=== PATIENT | female | born 1995 | race Hispanic/Latino ===

== ENCOUNTER 2017-12-09 21:01 | Inpatient (IN) | payer MEDICAID ==
[~2017-12-09] VITALS: Ht 167.6 cm; Wt 100.7 kg
[2017-12-09] MEDS ORDERED: PREN-196 PO (21:19)
[2017-12-09] MEDS: LACTATED RINGERS 1000ML 1,000 ML IV SCH ×2 (22:09→23:06)
[2017-12-09 22:14] LABS: BILIRUBIN,URINE Negative (NEGATIVE); COLOR,URINE Yellow (YELLOW); GLUCOSE, URINE (UA) Negative (NEGATIVE); KETONES,URINE Negative (NEGATIVE); LEUKOCYTE ESTERASE ,URINE Small (NEGATIVE); NITRATE,URINE Negative (NEGATIVE); OCCULT BLOOD,URINE Negative (NEGATIVE); PROTEIN,URINE Trace (NEGATIVE)
[2017-12-09 22:21] LABS: AMPHET/METH SCREEN,URINE NEGATIVE (NEGATIVE); BARBITURATE SCREEN, URINE NEGATIVE (NEGATIVE); BENZODIAZEPINES SCREEN,URINE NEGATIVE (NEGATIVE); CANNABINOID SCREEN,URINE NEGATIVE (NEGATIVE); COCAINE SCREEN,URINE NEGATIVE (NEGATIVE); OPIATE SCREEN,URINE NEGATIVE (NEGATIVE); PHENCYCLIDINE SCREEN,URINE NEGATIVE (NEGATIVE)
[2017-12-09 22:26] LABS: APPEARANCE,URINE SLIGHTLY CLOUDY (CLEAR)
[2017-12-09 22:31] LABS: BACTERIA,URINE Few /HPF (None Seen); RBC,URINE 0-1 /HPF (0-1)
[2017-12-09 22:32] LABS: CALCIUM OXALATE CRYSTALS,UR Few /LPF (None Seen); SQUAMOUS EPITHELIAL CELL,UR Many /LPF (0-2)
[2017-12-10 00:20] LABS: HEMATOCRIT 31.5 % (36-48); MEAN CORPUSCULAR HEMOGLOBIN 24.1 pg (27.0-33.0); MEAN CORPUSCULAR HGB CONC 32.4 g/dL (32.0-36.0); MEAN CORPUSCULAR VOLUME 74.4 fL (79-99); PLATELET COUNT (AUTO) 382 K/uL (130-400); RED BLOOD CELL COUNT(AUTO) 4.23 MIL/uL (4.00-5.50); WHITE BLOOD COUNT (AUTO) 11.2 K/uL (4.8-10.8)
[2017-12-10] MEDS: TERBUTALINE SULFATE VIAL 1MG/ML SQ SCH (00:34)
[2017-12-10] MEDS: PROMETHAZINE HCL 25 MG/ML 1ML AMPULE IM PRN ×3 (01:12→20:11)
[2017-12-10] MEDS: MEPERIDINE-PF 50 MG/ML SYG IVP PRN ×2 (01:13→05:20)
[2017-12-10] MEDS ORDERED: MAGNESIUM 4GM PREMIX 100ML 100 ML IV SCH (02:00)
[2017-12-10] MEDS ORDERED: CALCIUM GLUCONATE 1 GM/10 ML VIAL IV PRN (02:00)
[2017-12-10] MEDS ORDERED: MAGNESIUM SULFATE 1,000 ML IV PRN (02:15)
[2017-12-10] MEDS ORDERED: AMPICILLIN 2GM+NS 100ML 100 ML IV ONE (03:21)
[2017-12-10 07:02] LABS: RAPID PLASMA REAGIN NONREACTIVE (NONREACTIVE)
[2017-12-10] MEDS: AMPICILLIN 2GM+NS 100ML 100 ML IV SCH ×4 (09:30→21:30)
[2017-12-10] MEDS: LACTATED RINGERS 1000ML 1,000 ML IV SCH (09:41)
[2017-12-10] MEDS ORDERED: CEFAZOLIN SODIUM 1 GM VIAL IVP PRN (10:45)
[2017-12-10] MEDS ORDERED: CALDOLOR 800MG+NS 250ML 250 ML IV PRN (10:45)
[2017-12-10] MEDS ORDERED: LACTATED RINGERS 1000ML 1,000 ML IV SCH (10:45)
[2017-12-10] MEDS ORDERED: LANOLIN 30GM OINTMENT TP PRN (13:45)
[2017-12-10] MEDS ORDERED: DIPHENHYDRAMINE HCL 25 MG CAPSULE PO PRN (13:45)
[2017-12-10] MEDS ORDERED: PROMETHAZINE HCL 25 MG/ML 1ML AMPULE IM PRN (13:45)
[2017-12-10] MEDS ORDERED: ACETAMINOPHEN EXTRA STRENGTH 500 MG TABLET PO PRN (13:45)
[2017-12-10] MEDS ORDERED: SODIUM CHLORIDE 0.9% 10 ML VIAL IVP PRN ×2 (13:45)
[2017-12-10] MEDS ORDERED: IBUPROFEN 600 MG TABLET PO PRN (13:45)
[2017-12-10] MEDS: IBUPROFEN 800 MG TAB PO SCH ×2 (13:45→21:45)
[2017-12-10] MEDS ORDERED: DEXTROSE 5 %-0.45 % NACL 1,000 ML IV PRN (13:45)
[2017-12-10] MEDS: MEASLES/MUMPS/RUBELLA VACCINE, LIVE 0.5 ML/VIAL SQ SCH (13:45)
[2017-12-10] MEDS ORDERED: BISACODYL 10 MG SUPP.RECT RC PRN (13:45)
[2017-12-10] MEDS: DIPH,PERTUSS(ACELL),TET VAC/PF 0.5 ML VIAL IM SCH (13:45)
[2017-12-10] MEDS ORDERED: CEFAZOLIN SODIUM 1 GM VIAL IVP ONE (14:00)
[2017-12-10] MEDS ORDERED: ONDANSETRON HCL 4 MG/2 ML VIAL ONE (14:06)
[2017-12-10] MEDS ORDERED: DEXAMETHASONE SOD PHOSPHATE 10MG/ML 1ML VIAL ONE (14:06)
[2017-12-10] MEDS ORDERED: OXYTOCIN 10 USP UNITS/ML ONE ×3 (14:06→21:54)
[2017-12-10] MEDS ORDERED: LACTATED RINGERS 1000ML 1,000 ML IV ONE ×2 (15:16→21:54)
[2017-12-10] MEDS: OXYTOCIN-LR 20 UNITS/1000 ML 1,000 ML IV PRN ×2 (15:19→21:57)
[2017-12-10] MEDS ORDERED: EPHEDRINE-NS PF 50MG/5ML SYRINGE IV PRN (15:27)
[2017-12-10] MEDS ORDERED: EPHEDRINE-NS PF 50MG/5ML SYRINGE IV ONE (15:30)
[2017-12-10] MEDS: MEPERIDINE-PF 75 MG/ML SYG IM PRN ×2 (15:58→20:12)
[2017-12-10 20:30] VITALS: BP 122/59
[2017-12-10] MEDS: DOCUSATE SODIUM 100 MG CAP PO SCH (21:14)
[2017-12-10] MEDS: SIMETHICONE 80 MG TAB.CHEW PO PRN (21:14)
[2017-12-10] MEDS ORDERED: CALDOLOR 800MG+NS 250ML 250 ML IV SCH (21:45)
[2017-12-11] VITALS: BP 118/60
[2017-12-11] MEDS: TERBUTALINE SULFATE VIAL 1MG/ML SQ SCH (00:15)
[2017-12-11] MEDS: ACETAMINOPHEN-CODEINE 300/30MG TAB PO PRN ×5 (00:35→20:13)
[2017-12-11] MEDS: SIMETHICONE 80 MG TAB.CHEW PO PRN ×4 (01:03→21:55)
[2017-12-11 03:23] VITALS: BP 108/55
[2017-12-11] MEDS: IBUPROFEN 800 MG TAB PO SCH ×2 (05:45→17:25)
[2017-12-11 07:35] LABS: HEMATOCRIT 27.8 % (36-48); MEAN CORPUSCULAR HEMOGLOBIN 24.2 pg (27.0-33.0); MEAN CORPUSCULAR HGB CONC 32.4 g/dL (32.0-36.0); MEAN CORPUSCULAR VOLUME 74.7 fL (79-99); PLATELET COUNT (AUTO) 311 K/uL (130-400); RED BLOOD CELL COUNT(AUTO) 3.72 MIL/uL (4.00-5.50); RED CELL DISTRIBUTION WIDTH 16.1 % (11.0-15.5); WHITE BLOOD COUNT (AUTO) 14.3 K/uL (4.8-10.8)
[2017-12-11] MEDS: LIDOCAINE 5% TOPICAL PATCH TP SCH (10:01)
[2017-12-11] MEDS: DOCUSATE SODIUM 100 MG CAP PO SCH ×2 (10:02→21:55)
[2017-12-11 11:44] VITALS: BP 129/78
[2017-12-11] MEDS ORDERED: IBUPROFEN 800 MG TAB PO SCH (13:45)
[2017-12-11 15:18] VITALS: BP 125/69
[2017-12-11 19:24] VITALS: BP 118/72
[2017-12-11 23:51] VITALS: BP 119/84
[2017-12-12] MEDS: TERBUTALINE SULFATE VIAL 1MG/ML SQ SCH (00:15)
[2017-12-12] MEDS: IBUPROFEN 800 MG TAB PO SCH ×4 (00:42→22:49)
[2017-12-12] MEDS: ACETAMINOPHEN-CODEINE 300/30MG TAB PO PRN ×3 (02:43→21:44)
[2017-12-12 03:03] VITALS: BP 123/69
[2017-12-12 06:22] LABS: HEPATITIS Bs ANTIGEN SCREEN P Negative (Negative)
[2017-12-12 07:40] VITALS: BP 125/73
[2017-12-12] MEDS: DOCUSATE SODIUM 100 MG CAP PO SCH ×2 (09:35→21:44)
[2017-12-12] MEDS: SIMETHICONE 80 MG TAB.CHEW PO PRN ×4 (09:35→21:44)
[2017-12-12] MEDS: LIDOCAINE 5% TOPICAL PATCH TP SCH (09:35)
[2017-12-12 11:40] VITALS: BP 127/87
[2017-12-12 16:45] VITALS: BP 125/80
[2017-12-12 19:30] VITALS: BP 141/64
[2017-12-12 23:33] VITALS: BP 123/74
[2017-12-13] MEDS: TERBUTALINE SULFATE VIAL 1MG/ML SQ SCH (00:15)
[2017-12-13 03:07] VITALS: BP 121/71
[2017-12-13] MEDS: IBUPROFEN 800 MG TAB PO SCH ×2 (06:20→14:05)
[2017-12-13 07:57] VITALS: BP 133/79
[2017-12-13] MEDS: DOCUSATE SODIUM 100 MG CAP PO SCH (09:16)
[2017-12-13] MEDS: LIDOCAINE 5% TOPICAL PATCH TP SCH (09:17)
[2017-12-13] MEDS: MEASLES/MUMPS/RUBELLA VACCINE, LIVE 0.5 ML/VIAL SQ SCH (13:45)
[2017-12-13] MEDS: DIPH,PERTUSS(ACELL),TET VAC/PF 0.5 ML VIAL IM SCH (13:45)
[2017-12-13 16:34] VITALS: BP 134/71
== END 2017-12-13 18:00 | disposition home or self-care (01) | DRG 540 ==
LOC: EDH 21:01 → OBSVTOIN 21:02 → LDH 21:02 → WSH 12-11 11:10
PROVIDERS: ADMIT Obstetrics & Gynecology; ATTEND Obstetrics & Gynecology
PROC: 10D00Z0 Extraction of Products of Conception, High, Open Approach (ICD-10-PCS; principal; 2017-12-10 14:00)
DX: O32.8XX0 Maternal care for other malpresentation of fetus, not applicable or unspecified (principal); O60.14X0 Preterm labor third trimester with preterm delivery third trimester, not applicable or unspecified; O99.02 Anemia complicating childbirth; O34.211 Maternal care for low transverse scar from previous cesarean delivery; O61.9 Failed induction of labor, unspecified; Z37.0 Single live birth; Z3A.36 36 weeks gestation of pregnancy
CPT/HCPCS: 36415; 59510; 76805; 80305; 81001; 82120; 85027; 86592; 86701; 86850; 86900; 86901; 87340; 87390; A4344; A4450; A4606; J0290; J0690; J1100; J1741; J2175; J2405; J2550; J2590; J3105; J3475; J3490; J7120

== ENCOUNTER 2018-04-09 13:54 | Emergency (ER) | payer MEDICAID, OTHER ==
[~2018-04-09 13:54] MED LIST: PREN-196 PO
== END 2018-04-09 15:13 | disposition home or self-care (01) ==
LOC: EDH 13:54
DX: S90.122A Contusion of left lesser toe(s) without damage to nail, initial encounter (principal); Z72.0 Tobacco use; W22.03XA Walked into furniture, initial encounter; Y93.89 Activity, other specified; Y92.098 Other place in other non-institutional residence as the place of occurrence of the external cause; Y99.8 Other external cause status
CPT/HCPCS: 73630

== ENCOUNTER 2018-11-26 09:38 | Emergency (ER) | payer OTHER | END 2018-11-26 10:00 | disposition home or self-care (01) | LOC: EDH 09:38 | DX: B08.5 Enteroviral vesicular pharyngitis (principal); Z72.0 Tobacco use ==